=== PATIENT | female | born 2005 | race Hispanic/Latino ===

== ENCOUNTER 2023-05-17 14:22 | Day surgery (SDC) | payer MEDICAID, SELFPAY ==
[2023-05-17 14:51] VITALS: BMI 24.9
[2023-05-17] MEDS ORDERED: hydrALAZINE 20 MG/ML VIAL SLOW IVP PRN (15:11)
[2023-05-17] MEDS ORDERED: Lactated Ringer's 1,000 ML IV SCH (17:45)
== END 2023-05-17 20:14 | disposition home or self-care (01) ==
LOC: CSHLD/OP 14:22
PROVIDERS: ATTEND Obstetrics & Gynecology
DX: O47.03 False labor before 37 completed weeks of gestation, third trimester (principal); O09.33 Supervision of pregnancy with insufficient antenatal care, third trimester; Z79.899 Other long term (current) drug therapy; Z3A.35 35 weeks gestation of pregnancy
CPT/HCPCS: 96360; 99282